=== PATIENT | male | born 1990 | race Hispanic/Latino ===

== ENCOUNTER 2025-03-21 16:56 | Emergency (ER) | payer SELFPAY ==
[2025-03-21 16:59] VITALS: BP 143/88
[2025-03-21 17:17] LABS: Hematocrit 46.4 % (39.0-52.0); Hemoglobin 15.6 g/dL (13.0-18.0); Mean Corp Hgb Conc. 33.6 g/dL (33.0-37.0); Mean Corpuscular Volume 86.1 fL (80.0-94.0); Nucleated Red Blood Cells % 0 % (-); Platelet Count 326 10^3/uL (130-400); Red Cell Dist. Width 11.9 % (11.5-14.5)
[2025-03-21 17:32] LABS: ALT (SGPT) 29 U/L (0-50); AST (SGOT) 21 U/L (17-59); Albumin 5.1 g/dl (3.5-5.0); Alkaline Phosphatase 80 U/L (38-126); Blood Urea Nitrogen 13 mg/dl (9-20); Calcium 9.5 mg/dl (8.4-10.2); Carbon Dioxide 30 mmol/L (22-30); Chloride 100 mmol/L (98-107); Glucose 122 mg/dl (70-99); Potassium 4.2 mmol/L (3.5-5.1); Sodium 135 mmol/L (135-145); Total Protein 8.3 g/dl (6.3-8.2); eGFR > 60.00
[2025-03-21 17:39] LABS: Urine Character Clear (Clear)
[2025-03-21 18:24] LABS: Urine Squamous Cell 0-2 /LPF (Few)
[2025-03-21 18:25] LABS: Urine Red Blood Cell 0-2 /HPF (0-2); Urine White Cell 0-2 /HPF (0-5)
[2025-03-21] MEDS: TORADOL 15 MG IV (20:49)
[2025-03-21] MEDS: LIDOCAINE 4% PATCH 1 PATCH TOPICAL (20:49)
[2025-03-21] MEDS: NSS 500 IV (20:49)
--- NOTE | 2025-03-21 21:05 | ED.GENMED ---
History of Present Illness
General
Chief Complaint: Abdominal Pain
Source: patient
Exam Limitations: none
Time Seen by Provider: 03/21/25 20:04
Nursing documentation reviewed up to this point in time: agreed with
History of Present Illness
History of Present Illness:
Patient is a healthy 35-year-old male who presents to the emergency department for evaluation of left-sided back pain for the past 8 days. Patient notes that approximately 8 days ago he started with pain in his left lower back worse with movement.
He has no pain at rest. He describes it as sharp pain in his left lower back radiating to his mid abdomen. He denies any radiation into his lower extremities or numbness/tingling. He denies any loss of bowel/bladder control. He denies any
associated fever, chills, nausea or vomiting. No diarrhea or constipation. No dysuria or hematuria. No chest pain or shortness of breath.
He denies any history of similar symptoms. 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
Review of Systems
Review of Systems
Allergies reviewed?: Yes
All Other Systems: ROS reviewed and negative except as documented in HPI and ROS
Phy Exam
Physical Exam
Physical Exam:
Vitals: Patient's vital signs are stable. Afebrile
General: Patient is well appearing, no acute distress
Skin: Warm and dry, no rashes or lesions
Head: Normocephalic, atraumatic
Eyes: Sclera nonicteric.
Throat: Protecting airway
Neck: Normal ROM, no cervical spine tenderness, no meningismus
Cardiac: Regular rate and rhythm, no murmurs.
Pulm: Normal respiratory effort. Lungs clear
Abdomen: Abdomen soft. No focal areas of reducible tenderness. No rebound or guarding.
Back: Reproducible tenderness in left lower paralumbar region. Negative straight leg raise bilaterally. No rash
Extremities: No evidence of cyanosis or edema. Strength 5/5 in bilateral upper and lower extremities. Sensation intact
Neuro: AAOx3. Grossly intact.
Psychiatric: Normal affect.
Course
Orders/Labs/Results
Orders:
Orders
03/21/25 17:09
CMP [Comprehensive Metabolic Panel] Urgent
Complete Blood Count/With Diff Urgent
Urinalysis Reflex To Culture Urgent
Date Specimen was Collected: 03/21/25
Time Specimen was Collected: 17:03
Urine Microscopic Reflex Cult Urgent
03/21/25 20:44
CT Abd/pelvis W Iv Cont Urgent
Comment:
Reason For Exam: Left flank pain radiating to left mid abdomen
0.9% Sodium Chloride 500 ml [Nss] 500 ml IV BOLUS
Ketorolac [Toradol] 15 mg IV NOW STA
Lidocaine [Lidocaine 4% Patch] 1 patch TOPICAL NOW STA
Apply Lidocaine patch(s) to:: Left back
Abnormal Lab Results
03/21/25
17:09
Absolute Lymphs (auto) 3.7 H 10^3/uL
(1.2-3.4)
Glucose 122 H mg/dl
(70-99)
Total Protein 8.3 H g/dl
(6.3-8.2)
Albumin 5.1 H g/dl
(3.5-5.0)
Ur Occult Blood Reflex 1+ A
(Negative)
03/21/25 17:09
03/21/25 17:09
Vital Signs
Initial and Last Documented VS:
Initial Vital Signs
Temp Resp BP
98.5 F 18 143/88
03/21/25 16:59 03/21/25 16:59 03/21/25 16:59
Last Documented Vital Signs
Temp Pulse Resp BP Pulse Ox
98.5 F 57 20 128/83 99
03/21/25 22:36 03/21/25 22:36 03/21/25 22:36 03/21/25 22:36 03/22/25 00:14
MDM/Problems Addressed
Differential Diagnosis Includes:
Not limited to: Muscle strain/spasm, radicular pain, diverticulitis, renal colic, pyelonephritis, etc.
MDM/Problems Addressed:
35 year-old male with eight days of left lower back pain radiating to left abdomen. Symptoms only present with movements. No other associated symptoms including fever, G.I. symptoms, or urinary symptoms. No chest pain or shortness of breath. No
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
Vitals and physical exam as above.
Clinical picture is most consistent with musculoskeletal back pain. No neurologic symptoms concerning for caudal equina. No associated infectious symptoms. No evidence of vascular catastrophe.
Basic labs and urine were obtained prior to my evaluation without any abnormalities. Urine does not reveal any RBCs or evidence of infection.
While most suspicious of muscular etiology, given radiation into abdomen, will obtain CT scan. Will treat symptoms with Toradol, lidocaine patch.
Update: CT scan of abdomen/palace with IV contrast shows no acute abnormalities. Suspect low back strain. Will provide prescription for steroids and muscle relaxer. Feel stable for discharge home with [facility] at [facility] and strict return
precautions. Patient expressed verbal understanding and is comfortable with plan.
Chronic conditions affecting care:
N/A
Acute Exacerbation and/or Progression of Chronic Illness:
N/A
*Radiology
Radiology exam reviewed: radiology read reviewed
*Pulse Oximetry
SaO2: 99
Patient hypoxic: no
*EKG
Interpreted by ED Provider?: NA
*Professor Of Biblical Studies Interpretation
Rate: Professor Of Biblical Studies- N/A
*Critical Care Note
Total Time (30-74mins, 75-104mins- exclusive of procedures): Not Applicable
ED Attending Note
-
Portions of this chart may have been created with voice recognition software.� Occasional wrong word or��sound alike� substitutions may have occurred due to the inherent limitations of voice recognition software.
Discharge Plan
Departure
Patient Disposition: Home (Routine Discharge)
Date of Disposition: 03/21/25
Time of Disposition: 22:31
Patient with high blood pressure during this ER visit?: Yes
Condition: Good
Discharge Problem:
Left low back pain
Instructions: Low back pain - ED (DC), BLOOD PRESSURE
Prescriptions:
New
cyclobenzaprine 10 mg tablet
10 mg PO Q8H PRN (Reason: muscle spasm) Qty: 10 0RF
prednisone 20 mg tablet
40 mg PO DAILY 5 Days Qty: 10 0RF
Referrals:
[facility] - Next open appointment
NONE,* [Family Provider, Internal Medicine]
Stand Alone Forms: Return to Work
Activity Restrictions/Additional Instructions:
REGRESE A URGENCIAS SI PRESENTA FIEBRE, ESCALOZOLES, V�MITOS INTRATABLES, DIFICULTADES URINARIAS, ENTUMECIMIENTO/HORMIGUEO O DEBILIDAD EN LAS EXTREMIDADES INFERIORES, P�RDIDA DE CONTROL VEJIGATORIO, EMPEORAMIENTO DE LOS S�NTOMAS ACTUALES O CUALQUIER
OTRA PREOCUPACI�N.
- [place] ya se mencion�, shahana an�lisis de laboratorio y de orina no mostraron ninguna anomal�a aguda hoy en urgencias. Seaman tomograf�a computarizada tampoco mostr� hallazgos agudos.
- Sospecho que seaman dolor lumbar probablemente sea de origen muscular.
- Contin�e tomando Motrin y/o Tylenol seg�n sea necesario para el dolor. Puede aplicar parches t�picos de lidoca�na en la michael lumbar, que puede comprar en la farmacia. Lata soares enviado un relajante muscular a seaman farmacia, que puede miles seg�n lo
necesite. [place] puede causar somnolencia y no debe tomarlo antes de conducir. Tambi�n le he enviado sean receta para un tratamiento de 5 d�as con un esteroide. Por favor, acuda a la cl�gail lotustrose [facility] para sean evaluaci�n adicional y para
asegurar que shahana s�ntomas est�n mejorando. Si los s�ntomas persisten, podr�a requerir im�genes adicionales.
Vigile shahana s�ntomas de cerca y acuda a urgencias ante cualquier empeoramiento zayda, nuevos s�ntomas o cualquier otra inquietud.
Interventions
Interventions:
*Risk Screen - Suicide Last Done: 03/21/25 16:59
*General Assessment Last Done: 03/21/25 20:03
*Neglect/Abuse Screening Last Done: 03/21/25 20:03
*ED COVID-19 Vaccine History Last Done: 03/21/25 20:03
*ED Influenza Vaccine History Last Done: 03/21/25 20:03
[facility] Risk Assessment Tool Last Done: 03/21/25 20:03
*Nursing Disposition Last Done: 03/21/25 22:38
AQ-Sgxmkc-Koogsmlrus Assessment Last Done: 03/21/25 20:03
Discharge Date and Time
Discharge Date/Time: 03/21/25 22:39
Print Language: ISRAELI
[2025-03-21 22:36] VITALS: BP 128/83
== END 2025-03-21 22:39 | disposition home or self-care (01) ==
LOC: EMR 16:56
PROVIDERS: Emergency Medicine; EMERGENCY PHYSICIAN Emergency Medicine
DX: M54.50 Low back pain, unspecified (principal); R03.0 Elevated blood-pressure reading, without diagnosis of hypertension
CPT/HCPCS: 99284; 96374; 96361; 74177; 80053; 81003; 81015; 85025; Q9967